=== PATIENT | male | born 1970 | race Caucasian/White ===

== ENCOUNTER 2022-09-19 14:32 | Inpatient (IN) | payer MEDICAID, SELFPAY ==
[2022-09-19 14:37] VITALS: BP 158/84; PULSE 89; RESP 18; TEMP 36.8; O2SAT 97; BMI 28.7
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
[2022-09-19] MEDS: LORazepam 2 mg Tablet PO (15:09)
[2022-09-19 15:35] LABS: Amphetamines Screen Urine Positive (Negative); Barbiturates Screen Urine Negative (Negative); Benzodiazepines Screen Urine Negative (Negative); Cocaine Screen Urine Negative (Negative); Opiate Screen Urine Negative (Negative); PCP Screen Urine Negative (Negative); THC Screen Urine Negative (Negative)
[2022-09-19 15:43] LABS: Add Urine Microscopic? YES; Bacteria Urine TRACE /hpf; Bilirubin Urine Neg (Negative); Blood Urine 2+ (Negative); Glucose Urine UA Norm (Normal); Ketones Urine 1+ (Negative); Leukocyte Esterase Urine Negative (Negative); Mucus Urine TRACE /hpf; Nitrate Urine Negative (Negative); Protein Urine Neg (Negative); RBC Urine 0-4 /hpf (0-2); Specific Gravity, Urine 1.015 (1.005-1.030); Urine Appearance Clear (CLEAR); Urine Color Yellow (Yellow); Urobilinogen Urine Norm (Negative); WBC Urine RARE /hpf (0-5); pH Urine 5 (5-7)
[2022-09-19 15:44] LABS: Add Urine Culture? No
[2022-09-19 16:03] LABS: Basophils % 0.2 %; Eosinophils # 0.1 10^3/uL (0.0-0.8); Eosinophils % 0.7 %; Hematocrit 49.2 % (42.0-52.0); Hemoglobin 16.9 g/dL (11.7-16.6); Lymphocytes # 1.3 10^3/uL (0.8-4.8); Mean Corpuscular HGB Conc 34.3 g/dL (30.0-36.0); Mean Corpuscular Volume 93.2 fl (80-94); Mean Platelet Volume 9.8 fL (7.4-10.4); Monocytes # 0.8 10^3/uL (0.2-0.9); Monocytes % 9.5 %; Neutrophils % 73.4 %; Nucleated Red Blood Cells % 0 %; Platelet Count 259 10^3/cmm (130-400); Red Blood Count 5.28 10^6/uL (4.1-5.3); White Blood Count 8.2 10^3/uL (4.0-10.0)
[2022-09-19 16:12] LABS: Alanine Aminotransferase 13 U/L (0-41); Albumin Level 4.1 g/dL (3.5-5.2); Alcohol Level 70 mg/dL (0-10); Alkaline Phosphatase 66 U/L (40-130); Anion Gap 19.7 (5-19); Aspartate Amino Transferase 14 U/L (0-40); Blood Urea Nitrogen 12 mg/dL (6-20); Calcium 9.1 mg/dL (8.5-10.5); Carbon Dioxide 19 mmol/L (22-29); Chloride 102 mmol/L (98-107); Creatinine Clr Calc Pharmacy 88.9858; Globulin 3.1 g/dL (1.3-4.6); Glomerular Filtration Rate 70.3 mL/min (90-130); Glucose 82 mg/dL (65-115); Osmolality Calculated 283 mOsm/kg (285-295); Potassium 3.7 mmol/L (3.5-5.1); Sodium 137 mmol/L (136-145); Total Bilirubin 0.5 mg/dL (0.15-1.2); Total Protein 7.2 g/dL (6.6-8.7)
[2022-09-19 16:31] LABS: Acetaminophen < 5.0 ug/mL (10-30); Salicylate < 0.3 mg/dL (3-10)
[2022-09-19 17:12] VITALS: BP 107/77; PULSE 87; RESP 16; TEMP 36.7; O2SAT 97
[2022-09-19 20:26] VITALS: RESP 16
[2022-09-20 06:00] VITALS: BP 129/82; PULSE 62; RESP 17; TEMP 36.4
[2022-09-20] MEDS: folic acid 1 mg Tablet PO (08:13)
[2022-09-20] MEDS: thiamine 100 mg Tablet PO (08:13)
[2022-09-20] MEDS: multivitamin therapeutic Tablet 1 TAB PO (08:13)
[2022-09-20 14:00] VITALS: BP 166/64; PULSE 71; RESP 16; TEMP 36.3; O2SAT 98
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
[2022-09-20 20:36] VITALS: BP 120/81; PULSE 87; RESP 18; TEMP 36.7; O2SAT 96
[2022-09-21 06:00] VITALS: BP 137/90; PULSE 62; RESP 16; O2SAT 97
[2022-09-21] MEDS: folic acid 1 mg Tablet PO (07:53)
[2022-09-21] MEDS: thiamine 100 mg Tablet PO (07:53)
[2022-09-21] MEDS: multivitamin therapeutic Tablet 1 TAB PO (07:53)
[2022-09-21] MEDS: citalopram 20 mg Tablet PO (13:08)
[2022-09-21 14:00] VITALS: BP 146/92; PULSE 62; RESP 17; TEMP 36.7; O2SAT 98
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
[2022-09-21 21:05] VITALS: BP 131/87; PULSE 63; RESP 18; TEMP 37; O2SAT 96
[2022-09-22 06:00] VITALS: BP 166/101; PULSE 71; RESP 20; TEMP 36.4; O2SAT 98
[2022-09-22] MEDS: folic acid 1 mg Tablet PO (08:52)
[2022-09-22] MEDS: multivitamin therapeutic Tablet 1 TAB PO (08:52)
[2022-09-22] MEDS: thiamine 100 mg Tablet PO (08:52)
[2022-09-22] MEDS: citalopram 20 mg Tablet PO (08:53)
--- NOTE | 2022-09-22 13:15 | W.PM.NPUDCS ---
Diagnoses at Discharge Discharge Diagnosis (1) Grief reaction with prolonged bereavement: Status: Acute (2) ETOH abuse: Status: Acute (3) Suicidal ideation: Status: Resolved (4) PTSD (post-traumatic stress disorder): Status: Acute (5) Major depressive disorder: Status: Acute Reason for Visit Reason for Visit: Mhe Brief History: History of Present Illness Antonio Yen is a 52 year old male who presented to the emergency department with the following report: Chief Complaint: Psychiatric Symptoms Stated Complaint: Mhe Time Seen by Provider: 09/19/22 14:49 Source: patient Mode of arrival: ambulatory History of Present Illness:?? 52-year-old male presents emergency room with complaint of suicidal ideation as well as homicidal ideation.? It is anniversary of the loss of his son who in a motor vehicle accident approximately 15 years ago when he was 16 years old.? He reports every year he gets very depressed around this time in addition to that stressor his brother was in a serious motorcycle accident lost a portion of his leg and is doing very poorly at a trauma center in [place] he also lost an aunt that he was close to within the last month.? Annually with the anniversary of the loss of his son he admits to having difficulty with drinking recently has been drinking up to a 12 pack a day.? That has been for the last couple of months.? He has used some methamphetamine in the past but has not for several weeks.? He is not currently seen by psychiatry nor is he on any medications.? He is been admitted once in the past for mental health issues when his son was first killed. ? MD complaint: suicidal ideation and feels depressed Onset (ago): week(s) Duration: constant History of same: Yes Relieving factors: none Exacerbating factors: alcohol Context: recent alcohol abuse Associated psychiatric symptoms: depression, suicidal ideation and homicidal ideation Associated symptoms: Reports depression, homicidal ideation and suicidal ideation; Deny auditory hallucinations, visual hallucinations, delusions, racing thoughts or other Treatments prior to arrival: none If self harm: admits thoughts of self harm. The patient was admitted to the neuropsychiatric unit for definitive treatment of those issues. The patient presents today reporting that he is not currently on any psychiatric medications. He reports that this is the anniversary of his son?s , which he struggles with every year, and this year has been particularly difficult as his aunt just , and his brother is in the hospital secondary to a motorcycle accident, and just had his leg cut off. He reports that he was having suicidal thoughts a day or two ago, and he has been having voices in his head saying things like you?re a piece of shit, and other self-deprecating thoughts. The patient reports that he has had two previous psychiatric hospitalizations, once here, 15 years ago, when his son , as well as once at another hospital. He reports that they put him on medication, he took it for a while and then stopped, and had no follow up treatment. He reports he took Celexa. The patient denies tobacco use. He endorses alcohol use and has been drinking more lately. He denies marijuana use. He reports that he did methamphetamine about three weeks ago. He endorses drug rehabilitation twice, when he was around 22-23 years old and at 27 years old. He reports that he has three DUI?s. He denies any drug related charges. He reports that his son in a car accident, he was driving recklessly/fast and hit a tree and it killed him on contact. On the anniversary of his son?s last year, he reports he did okay, but this year with the additional stressful events, it has been particularly hard for him. He endorses feelings of hopelessness, helplessness, worthlessness, sleep difficulties, lack of enjoyment, and denies passive wish. PSYCHIATRIC HISTORY: As above. SUBSTANCE ABUSE HISTORY: As above.? FAMILY HISTORY: The patient denies family history of mental health or addiction issues. He denies any suicide attempts or completions. DEVELOPMENTAL HISTORY: The patient denies any issues with mother?s or delivery of him. He learned to walk and talk and met all developmental milestones on time. The patient endorses speech therapy and denies learning support, emotional support, or special education classes. PSYCHOSOCIAL HISTORY: The patient reports that his mother and father were together when he was born; his father had cancer and in 1971, soon after he was born. He is the only product of that union. His mother had five other children, who are older, and his father had two older children as well. He describes his childhood as good. He denies emotional, physical, or sexual abuse. He denies CPS involvement. He reports that he graduated from high school. He denies additional education or training. He endorses being heterosexual, with his longest relationship being fifteen years. He has been twice and twice. He had four biological children, three living who are now 44, 31, and 26 years old, and his son that who would have been 32-33 years old. He denies service or a nondenominational belief system. 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 He currently lives in a house with his fianc? of fifteen years. LEGAL HISTORY: The patient reports that he has been to halfway multiple times, the longest time being 120 to 160 days. MEDICAL HISTORY: The patient reports allergies to Penicillin and sulfa. 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 Hospital Course Hospital Course He slowly acclimated to the individual, group and milieu therapies. He was initially resistant to medications but ultimately was willing to start Celexa 20 mg p.o. every morning and he was given thiamine for concerns of his alcohol addiction. He was a voluntary patient and initially wanted to leave immediately but was able to exercise some restraint and allowed medication and follow-up to be organized. He worked with the social work team for appropriate discharge planning. He had modest improvement during the stay and he was able to contract for safety outside of the hospital prior to discharge. During the hospitalization, patient had routine laboratory studies which were within normal limits except for few outliers.? Additionally there was a general medical evaluation which was also within normal limits and revealed no new acute processes. Discharge Summary: At the time of discharge, he denied psychosis or lethality.? Mood and anxiety were well managed.? Patient endorsed a plan to avoid all drugs of abuse and follow-up with the aftercare recommendations of the treatment team.? Patient was evaluated and deemed to be absent credible lethality, and had achieved the maximum benefit from an inpatient hospitalization, so was discharged. Involuntary Hold Information 96 Hour Hold: 96 Hour Involuntary Admission: No Mental Status Exam MSE Comments: This is a well-nourished, well-developed, white male, in hospital scrubs, with limited grooming and eye contact, with poor hygiene. No abnormal movements, except for mild psychomotor retardation. Cooperative with exam in mild distress. Speech was normal rate and volume. Mood described as pretty good; affect subdued. Thought process, organized. Thought content: patient denied any suicidal or homicidal ideation, there were no delusions reported or noted, patient denied any auditory or visual hallucinations. Attention, concentration, and memory appeared intact, but none were formally tested. Alert and oriented times three. Insight and judgment are fair. Impulse control is limited. Discharge Data Studies Completed and Pending: Pending at discharge Category Date Time Status CTA neck [CT hosea o neck [id number]] Urge nt Cat Scan 09/22/22 12:37 Ordered Laboratory Results WBC 8.2 10^3/uL (4.0- 10.0) 09/19/22 15:38 RBC 5.28 10^6/uL (4.1 -5.3) 09/19/22 15:38 Hgb 16.9 g/dL (11.7-1 6.6) H 09/19/22 15:38 Hct 49.2 % (42.0-52.0 ) 09/19/22 15:38 MCV 93.2 fl (80-94) 09/19/22 15:38 MCH 32.0 pg (28.0-34. 0) 09/19/22 15:38 MCHC 34.3 g/dL (30.0-3 6.0) 09/19/22 15:38 RDW 13.0 % (12.1-15.1 ) 09/19/22 15:38 Plt Count 259 10^3/cmm (130 -400) 09/19/22 15:38 MPV 9.8 fL (7.4-10.4) 09/19/22 15:38 Neut % (Auto) 73.4 % 09/19/22 15:38 Lymph % (Auto) 16.0 % 09/19/22 15:38 [place] % (Auto) 9.5 % 09/19/22 15:38 Eos % (Auto) 0.7 % 09/19/22 15:38 Baso % (Auto) 0.2 % 09/19/22 15:38 Neut # (Auto) 6.00 10^3/uL (1.8 -7.7) 09/19/22 15:38 Lymph # (Auto) 1.3 10^3/uL (0.8- 4.8) 09/19/22 15:38 [place] # (Auto) 0.8 10^3/uL (0.2- 0.9) 09/19/22 15:38 Eos # (Auto) 0.1 10^3/uL (0.0- 0.8) 09/19/22 15:38 Baso # (Auto) 0.0 10^3/uL (0.0- 0.1) 09/19/22 15:38 Nucleated RBC % (a uto) 0 % 09/19/22 15:38 Nucleated RBCs # 0.0 /100WBC 09/19/22 15:38 Sodium 137 mmol/L (136-1 45) 09/19/22 15:38 Potassium 3.7 mmol/L (3.5-5 .1) 09/19/22 15:38 Chloride 102 mmol/L (98-10 7) 09/19/22 15:38 Carbon Dioxide 19 mmol/L (22-29) L 09/19/22 15:38 Anion Gap 19.7 (5-19) H 09/19/22 15:38 BUN 12 mg/dL (6-20) 09/19/22 15:38 Creatinine 1.1 mg/dL (0.7-1. 2) 09/19/22 15:38 GFR Calculation 70.3 mL/min (90-1 30) L 09/19/22 15:38 Glucose 82 mg/dL (65-115) 09/19/22 15:38 Calculated Osmolal ity 283 mOsm/kg (285- 295) L 09/19/22 15:38 Calcium 9.1 mg/dL (8.5-10 .5) 09/19/22 15:38 Total Bilirubin 0.5 mg/dL (0.15-1 .2) 09/19/22 15:38 AST 14 U/L (0-40) 09/19/22 15:38 ALT 13 U/L (0-41) 09/19/22 15:38 Alkaline Phosphata se 66 U/L (40-130) 09/19/22 15:38 Total Protein 7.2 g/dL (6.6-8.7 ) 09/19/22 15:38 Albumin 4.1 g/dL (3.5-5.2 ) 09/19/22 15:38 Globulin 3.1 g/dL (1.3-4.6 ) 09/19/22 15:38 Urine Color Yellow (Yellow) 09/19/22 14:50 Urine Appearance Clear (CLEAR) 09/19/22 14:50 Urine pH 5 (5-7) 09/19/22 14:50 Ur Specific Gravit y 1.015 (1.005-1.0 30) 09/19/22 14:50 Urine Protein Neg (Negative) 09/19/22 14:50 Urine Glucose (UA) Norm (Normal) 09/19/22 14:50 Urine Ketones 1+ (Negative) H 09/19/22 14:50 Urine Blood 2+ (Negative) H 09/19/22 14:50 Urine Nitrate Negative (Negati ve) 09/19/22 14:50 Urine Bilirubin Neg (Negative) 09/19/22 14:50 Urine Urobilinogen Norm mg/dL (Negat keisha) 09/19/22 14:50 Ur Leukocyte Yanelis ase Negative (Negati ve) 09/19/22 14:50 Urine RBC 0-4 /hpf (0-2) H 09/19/22 14:50 Urine WBC Rare /hpf (0-5) 09/19/22 14:50 Ur Squamous Epith Cells None /hpf (0-5) 09/19/22 14:50 Amorphous Sediment Not Reportable 09/19/22 14:50 Urine Bacteria Trace /hpf (NONE) 09/19/22 14:50 Urine Mucus Trace /hpf 09/19/22 14:50 Salicylates < 0.3 mg/dL (3-10 ) L 09/19/22 15:38 Urine Opiates Scre en Negative ng/mL (N egative) 09/19/22 14:50 Acetaminophen < 5.0 ug/mL (10-3 0) L 09/19/22 15:38 Ur Barbiturates Sc reen Negative ng/mL (N egative) 09/19/22 14:50 Ur Phencyclidine S crn Negative ng/mL (N egative) 09/19/22 14:50 Ur Amphetamines Sc reen Positive ng/mL (N egative) H 09/19/22 14:50 U Benzodiazepines Scrn Negative ng/mL (N egative) 09/19/22 14:50 Urine Cocaine Scre en Negative ng/mL (N egative) 09/19/22 14:50 U Marijuana (THC) Screen Negative ng/mL (N egative) 09/19/22 14:50 Ethyl Alcohol 70 mg/dL (0-10) H 09/19/22 15:38 Vitals: Last Vital Signs Temp 97.6 F 09/22/22 06:00 Pulse 71 09/22/22 06:00 Resp 20 H 09/22/22 06:00 BP 166/101 09/22/22 06:00 Pulse Ox 98 09/22/22 06:00 O2 Del Method Room Air 09/22/22 06:00 Discharge Plan Discharge Patient Disposition: Home Condition: Stable Prescriptions: New citalopram 20 mg Tablet 20 mg PO DAILY 30 Days Qty: 30 1RF Vitamin B-1 (mononitrate) 100 mg Tablet 100 mg PO DAILY 30 Days Qty: 30 1RF Continued Zyrtec 10 mg Tablet 10 mg PO DAILY ibuprofen 200 mg Tablet 400 - 600 mg PO Q6H PRN (Reason: Pain) Discharge Orders: Discharge Order (Routine); Ordered 09/22/22 Ordered By: Jeffrey Enriquez Referrals: [facility] [Outside] - 09/24/22 8:30 am (Initial appointment scheduled for 09/24/22 @ 8:30 am. ) Ck Levy MD [Physician] - 09/24/22 2:15 pm (Establishing care and hospital follow up. ) Discharge Diet: Regular Discharge Activity: Resume usual activity Patient Instructions: Depression, Depression (GEN), PTSD (Post Traumatic Stress Disorder) (GEN), Help Prevent Suicide (GEN), Suicide Prevention (GEN), Opioid Safety Discharge Attestations NPU Time Spent in Discharge Care*: less than 30 min Specific Discharge Activities: Specific discharge activities: educating patient, discussing with business case analyst/social workers/dc planners, documenting/other paperwork and evaluating patient/reviewing data Coding Level of Care Code Acute Chg FW DC note Diagnoses Grief reaction with prolonged bereavement F43.29 ETOH abuse F10.10 Suicidal ideation R45.851 PTSD (post-traumatic stress disorder) F43.10 Major depressive disorder F32.9
[2022-09-22 13:34] VITALS: BP 166/101; PULSE 71; RESP 20; TEMP 36.4; O2SAT 98
== END 2022-09-22 14:54 | disposition home or self-care (01) | DRG 882 ==
LOC: ER 15:02 → NP 15:15
PROVIDERS: Admitting Provider Psychiatry & Neurology Psychiatry; Emergency Provider Family Medicine; Visit Provider Psychiatry & Neurology Psychiatry
DX: F43.29 Adjustment disorder with other symptoms (principal); R45.851 Suicidal ideations; F32.9 Major depressive disorder, single episode, unspecified; R45.850 Homicidal ideations; F10.10 Alcohol abuse, uncomplicated; F15.90 Other stimulant use, unspecified, uncomplicated; Z88.0 Allergy status to penicillin; Z88.2 Allergy status to sulfonamides; F43.10 Post-traumatic stress disorder, unspecified
CPT/HCPCS: 36415; 80053; 80306; 80307; 81001; 85025; 97165; 99238; 99285

== ENCOUNTER 2023-06-17 15:52 | Outpatient (CLI) | payer MEDICAID, SELFPAY ==
--- NOTE | 2023-06-17 16:04 | CTR_ITS ---
PROCEDURE INFORMATION: Exam: CT Abdomen And Pelvis Without Contrast Exam date and time: 06/17/2023 4:06 PM Age: 53 years old Clinical indication: Abdominal pain; Flank; Right; Additional info: Right flank pain TECHNIQUE: Imaging protocol: Computed tomography of the abdomen and pelvis without contrast. Radiation optimization: All CT scans at this facility use at least one of these dose optimization techniques: automated exposure control; mA and/or kV adjustment per patient size (includes targeted exams where dose is matched to clinical indication); or iterative reconstruction. COMPARISON: US renal BI* [id number] 05/19/2023 10:33 AM RADIATION DOSE METRICS: Total DLP (mGy-cm): 608.06 FINDINGS: Lungs: There is subsegmental atelectasis in the lingula and right lower lobe. Diaphragm: There is a small sliding-type hiatal hernia. Liver: The liver is normal. Gallbladder and bile ducts: The gallbladder is normal. There is no biliary dilation. Pancreas: The pancreas is unremarkable. Spleen: The spleen is unremarkable. Adrenal glands: The adrenal glands are unremarkable. Kidneys and ureters: Renal size and morphology is normal. No perinephric edema. There is no hydronephrosis or stones. Stomach and bowel: The stomach is decompressed, preventing meaningful evaluation of wall thickness. The small bowel is nondilated. There is pancolonic diverticulosis. There is no sign of diverticulitis. Appendix: The appendix is normal. Intraperitoneal space: There is no free air or significant intraperitoneal free fluid. Vasculature: The aorta is unremarkable. There is no aneurysm. The portal, splenic and superior mesenteric veins are patent. Lymph nodes: There is no lymphadenopathy in the retroperitoneum, mesentery, pelvis or inguinal regions. Urinary bladder: There is mild diffuse bladder wall thickening suggesting muscular hypertrophy. Reproductive: The prostate and seminal vesicles are unremarkable. Bones/joints: Pelvis and proximal femora are intact. There is a serpiginous band of sclerosis in the right femoral head consistent with avascular necrosis. There is no subchondral collapse. Soft tissues: There is a small fat containing left inguinal hernia. CT/CT kidney stone [id number] IMPRESSION: 1. No acute intra-abdominal findings. 2. No obstructive uropathy. No stones. 3. Avascular necrosis of the right femoral head. No subchondral collapse. 4. Incidental findings above.
== END 2023-06-17 15:53 | disposition home or self-care (01) ==
LOC: RAD 15:53
PROVIDERS: PCP Family Medicine; Visit Provider Family Medicine
DX: R10.9 Unspecified abdominal pain (principal); M87.851 Other osteonecrosis, right femur
CPT/HCPCS: 74176

== ENCOUNTER → 2024-01-09 14:19 | Outpatient (BNVA) | payer MEDICAID, SELFPAY | PROVIDERS: PCP Family Medicine; Visit Provider Podiatrist Foot & Ankle Surgery | DX: M21.621 Bunionette of right foot; M21.622 Bunionette of left foot; M20.41 Other hammer toe(s) (acquired), right foot; M20.42 Other hammer toe(s) (acquired), left foot; M77.42 Metatarsalgia, left foot; G62.9 Polyneuropathy, unspecified | CPT/HCPCS: 73630 ==

== ENCOUNTER 2024-02-02 06:44 | Outpatient (CLI) | payer BC, MEDICAID, SELFPAY ==
--- NOTE | 2024-02-02 07:15 | US_ITS ---
WS: [id number] ULTRASOUND SOFT TISSUES RIGHT foot HISTORY: bilateral foot ultrasound, to rule out Hood's neuroma COMPARISON: None available. TECHNIQUE: 2-D and color Doppler imaging is submitted. There is a very slight change of echogenicity between the second and third and third and fourth metat arsals. These are very subtle changes but could very well represent small Hood's neuromas. Second and third intertarsal masses 3 x 4 mm. Third and fourth intertarsal mass measures 4 x 4 mm. US/US soft tissue/extremity [id number] IMPRESSION: Intratarsal change in signal between the second and third and third and fourth metatarsals. Suspicious for small neuromas.
== END 2024-02-02 06:45 | disposition home or self-care (01) ==
LOC: RAD 06:45
PROVIDERS: PCP Family Medicine; Visit Provider Podiatrist Foot & Ankle Surgery
DX: R22.41 Localized swelling, mass and lump, right lower limb (principal); M21.622 Bunionette of left foot; M21.621 Bunionette of right foot
CPT/HCPCS: 76882

== ENCOUNTER → 2024-07-04 13:20 | Outpatient (BNVA) | payer OTHER, SELFPAY | PROVIDERS: PCP Family Medicine; Visit Provider Nurse Practitioner Psychiatric/Mental Health | DX: F43.10 Post-traumatic stress disorder, unspecified (principal); F10.21 Alcohol dependence, in remission; Z79.899 Other long term (current) drug therapy | CPT/HCPCS: 80061; 83036 ==